=== PATIENT | female | born 2000 ===

== ENCOUNTER 2021-02-13 21:19 | Emergency (ER) | payer BC ==
[2021-02-13] MEDS ORDERED: Sodium Chloride 0.9% 10 ML Syringe FLUSH PRN (22:05)
[2021-02-13] MEDS ORDERED: Sodium Chloride 0.9% 2.5 ML Syringe FLUSH PRN (22:05)
--- NOTE | 2021-02-13 22:27 | EDM.PDOC ---
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 . Menstrual period December 26. The patient reports she was at work when she went to the bathroom and when she wiped she noticed some light vaginal bleeding. She has had some mild lower abdominal cramping today as well. No fevers or chills. No dysuria. Did have some nausea and vomiting this morning but none now. she sees 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 Review of systems: As per history of present illness and below otherwise all systems reviewed and negative. Past medical history: As per history of present illness and as reviewed below otherwise noncontributory. Surgical history: As per history of present illness and as reviewed below otherwise noncontributory. Social history: No reported history of drug or alcohol abuse. She uses a vape cigarette but she has cut back and is continuously cutting back now. Family history: As per history of present illness and as reviewed below otherwise noncontributory. Physical exam: GEN: no acute distress, well appearing HEENT: Atraumatic, normocephalic, mucous membranes moist, Neck: supple, nontender, trachea midline. Lungs: No respiratory distress. Heart: RRR Abdomen: Soft, nondistended, nontender. Back: nontender, full range of motion Extremities: Atraumatic. Neurovascularly intact. Neuro: Awake, alert, oriented. Neuro Exam nonfocal. Skin: warm, dry, no lesions Diagnostics: Labs, UA, ABO Rh, ultrasound. Rh+. UA with no overt infection, rare bacteria. Transvaginal ultrasound shows TECHNIQUE: Ultrasound OB pelvis transvaginal. Real time arellano scale imaging of the pelvis was performed. Color Doppler and spectral flow was performed of the ovaries. COMPARISON: None FINDINGS: Sonographic imaging demonstrates a single living intrauterine gestation with a heartbeat measuring 109 beats per minute. The embryo`s crown rump length measures 0.4 cm, which corresponds to a gestational age of 6 weeks and 5 day with a sonographic due date of 10/04/2021. Yolk sac is visualized. The right ovary measures 2.9 x 2.1 x 3.9 cm and the left ovary measures 2.8 x 2.1 x 2.7 cm. No adnexal mass is present. Normal color Doppler and spectral flow. No free fluid is present. IMPRESSION: Single live intrauterine gestation with an estimated gestational age of 6 weeks and 5 days and estimated due date of 10/04/2021. Therapeutics: None indicated MDM: Impression: Bleeding in early , threatened miscarriage Plan: [] Definitive disposition and diagnosis as appropriate pending reevaluation and review of above. - Related Data Allergies Allergy/AdvReac Type Severity Reaction Status Date / Time No Known Allergies Allergy Verified 06/21/15 11:48 Home Meds: Home Meds . [No Known Home Meds] 06/21/15 [History] Past Medical History - Past Health History Medical/Surgical History: Denies Medical/Surgical History Social & Family History - Family History Family Medical History: No Pertinent Family History - Tobacco Use Tobacco Use Status *Q: Current Every Day Tobacco User Years of Tobacco use: 2 Packs/Tins Daily: 0 - Caffeine Use Caffeine Use: Reports: None - Recreational Drug Use Recreational Drug Use: Yes Recreational Drug Type: Reports: Marijuana/Hashish ED ROS GENERAL - Review of Systems Review Of Systems: See Below (See dictation) ED EXAM, GENERAL - Physical Exam Exam: See Below (See dictation) Course - Vital Signs Last Recorded V/S: Last Vital Signs Temp 99.0 F 02/13/21 21:39 Pulse 88 02/13/21 21:39 Resp 18 02/13/21 21:39 BP 134/70 02/13/21 21:39 Pulse Ox 100 02/13/21 21:39 - Orders/Labs/Meds Orders: Active Orders 24 hr Category Date Time Status Sodium Chloride 0.9% [Saline Flush] Med 02/13/21 22:05 Active 10 ml FLUSH ASDIRECTED PRN Sodium Chloride 0.9% [Saline Flush] Med 02/13/21 22:05 Active 2.5 ml FLUSH ASDIRECTED PRN Saline Lock Insert [OM.PC] Stat Oth 02/13/21 22:05 Ordered Medication Orders Sodium Chloride (Sodium Chloride 0.9% 10 Ml Syringe) 10 ml FLUSH ASDIRECTED PRN PRN Reason: Keep Vein Open Sodium Chloride (Sodium Chloride 0.9% 2.5 Ml Syringe) 2.5 ml FLUSH ASDIRECTED PRN PRN Reason: Keep Vein Open Labs: Laboratory Tests 02/13/21 02/13/21 02/13/21 Range/Units 21:55 21:55 22:25 WBC 5.83 (4.0-11.0) K/uL RBC 3.85 L (4.30-5.90) M/uL Hgb 12.3 (12.0-16.0) g/dL Hct 34.8 L (36.0-46.0) % MCV 90.4 (80.0-98.0) fL MCH 31.9 (27.0-32.0) pg MCHC 35.3 (31.0-37.0) g/dL RDW Std Deviation 40.4 (28.0-62.0) fl RDW Coeff of Saira 12 (11.0-15.0) % Plt Count 197 (150-400) K/uL MPV 9.40 (7.40-12.00) fL Neut % (Auto) 67.8 (48.0-80.0) % Lymph % (Auto) 18.0 (16.0-40.0) % [place] % (Auto) 12.2 (0.0-15.0) % Eos % (Auto) 1.5 (0.0-7.0) % Baso % (Auto) 0.5 (0.0-1.5) % Neut # (Auto) 4.0 (1.4-5.7) K/uL Lymph # (Auto) 1.1 (0.6-2.4) K/uL [place] # (Auto) 0.7 (0.0-0.8) K/uL Eos # (Auto) 0.1 (0.0-0.7) K/uL Baso # (Auto) 0.0 (0.0-0.1) K/uL Nucleated RBC % 0.0 /100WBC Nucleated RBCs # 0 K/uL Sodium (136-145) mmol/L Potassium (3.5-5.1) mmol/L Chloride (98-107) mmol/L Carbon Dioxide (21.0-32.0) mmol/L BUN (7.0-18.0) mg/dL Creatinine (0.6-1.0) mg/dL Est Cr Clr Drug Dosing mL/min Estimated GFR (MDRD) ml/min Glucose (74-106) mg/dL Calcium (8.5-10.1) mg/dL Total Bilirubin (0.2-1.0) mg/dL AST (15-37) IU/L ALT (14-63) IU/L Alkaline Phosphatase (46-116) U/L Total Protein (6.4-8.2) g/dL Albumin (3.4-5.0) g/dL Globulin (2.6-4.0) g/dL Albumin/Globulin Ratio (0.9-1.6) HCG, Quant mIU/mL Urine Color YELLOW Urine Appearance CLEAR Urine pH 6.0 (5.0-8.0) Ur Specific [place] >= 1.030 (1.001-1.035) Urine Protein NEGATIVE (NEGATIVE) mg/dL Urine Glucose (UA) NEGATIVE (NEGATIVE) mg/dL Urine Ketones 40 H (NEGATIVE) mg/dL Urine Occult Blood SMALL H (NEGATIVE) Urine Nitrite NEGATIVE (NEGATIVE) Urine Bilirubin NEGATIVE (NEGATIVE) Urine Urobilinogen 0.2 (<2.0) EU/dL Ur Leukocyte Esterase NEGATIVE (NEGATIVE) Urine RBC 0-2 (0-2/HPF) Urine WBC 0-1 (0-5/HPF) Ur Epithelial Cells MODERATE (NONE-FEW) Urine Bacteria RARE (NEGATIVE) Urine HCG, Qual POSITIVE (NEGATIVE) Blood Type 02/13/21 02/13/21 Range/Units 22:25 22:25 WBC (4.0-11.0) K/uL RBC (4.30-5.90) M/uL Hgb (12.0-16.0) g/dL Hct (36.0-46.0) % MCV (80.0-98.0) fL MCH (27.0-32.0) pg MCHC (31.0-37.0) g/dL RDW Std Deviation (28.0-62.0) fl RDW Coeff of Saira (11.0-15.0) % Plt Count (150-400) K/uL MPV (7.40-12.00) fL Neut % (Auto) (48.0-80.0) % Lymph % (Auto) (16.0-40.0) % [place] % (Auto) (0.0-15.0) % Eos % (Auto) (0.0-7.0) % Baso % (Auto) (0.0-1.5) % Neut # (Auto) (1.4-5.7) K/uL Lymph # (Auto) (0.6-2.4) K/uL [place] # (Auto) (0.0-0.8) K/uL Eos # (Auto) (0.0-0.7) K/uL Baso # (Auto) (0.0-0.1) K/uL Nucleated RBC % /100WBC Nucleated RBCs # K/uL Sodium 136 (136-145) mmol/L Potassium 4.2 (3.5-5.1) mmol/L Chloride 101 (98-107) mmol/L Carbon Dioxide 26.4 (21.0-32.0) mmol/L BUN 6 L (7.0-18.0) mg/dL Creatinine 0.6 (0.6-1.0) mg/dL Est Cr Clr Drug Dosing 124.19 mL/min Estimated GFR (MDRD) > 60.0 ml/min Glucose 82 (74-106) mg/dL Calcium 8.7 (8.5-10.1) mg/dL Total Bilirubin 0.4 (0.2-1.0) mg/dL AST 9 L (15-37) IU/L ALT 20 (14-63) IU/L Alkaline Phosphatase 42 L (46-116) U/L Total Protein 7.4 (6.4-8.2) g/dL Albumin 4.2 (3.4-5.0) g/dL Globulin 3.2 (2.6-4.0) g/dL Albumin/Globulin Ratio 1.3 (0.9-1.6) HCG, Quant 74894.0 mIU/mL Urine Color Urine Appearance Urine pH (5.0-8.0) Ur Specific [place] (1.001-1.035) Urine Protein (NEGATIVE) mg/dL Urine Glucose (UA) (NEGATIVE) mg/dL Urine Ketones (NEGATIVE) mg/dL Urine Occult Blood (NEGATIVE) Urine Nitrite (NEGATIVE) Urine Bilirubin (NEGATIVE) Urine Urobilinogen (<2.0) EU/dL Ur Leukocyte Esterase (NEGATIVE) Urine RBC (0-2/HPF) Urine WBC (0-5/HPF) Ur Epithelial Cells (NONE-FEW) Urine Bacteria (NEGATIVE) Urine HCG, Qual (NEGATIVE) Blood Type O POSITIVE Meds: Medications Generic Name Dose Route Start Last Admin Trade Name Brigitte PRN Reason Stop Dose Admin Sodium Chloride 10 ml 02/13/21 22:05 Sodium Chloride 0.9% 10 Ml Syringe FLUSH ASDIRECTED PRN Keep Vein Open Sodium Chloride 2.5 ml 02/13/21 22:05 Sodium Chloride 0.9% 2.5 Ml Syringe FLUSH ASDIRECTED PRN Keep Vein Open - Re-Assessments/Exams Free Text/Narrative Re-Assessment/Exam: 02/14/21 00:32 Results and plan of care discussed with the patient. Stable for discharge. Departure - Departure Time of Disposition: 00:32 Disposition: Home, Self-Care 01 Clinical Impression: Bleeding in early , Threatened miscarriage in early - Discharge Information Instructions: Threatened Miscarriage, [id number], Vaginal Bleeding During , First Trimester, [id number] Referrals: PCP,None [Primary Care Provider] - Forms: ED Department Discharge Additional Instructions: Please call your COP EXAMINER office on Tuesday to schedule a follow-up appointment. Return to the ER if bleeding becomes more severe or you develop any high fevers or severe pain. Drink plenty of fluids and get plenty of rest. You may take Tylenol as needed for any pain or cramping. Pelvic rest, meaning no tampons or anything else inserted in your vagina. No sexual intercourse. The following information is given to patients seen in the emergency department who are being discharged to home. This information is to outline your options for follow-up care. We provide all patients seen in our emergency department with a follow-up referral. The need for follow-up, as well as the timing and circumstances, are variable depending upon the specifics of your emergency department visit. If you don't have a primary care physician on staff, we will provide you with a referral. We always advise you to contact your personal physician following an emergency department visit to inform them of the circumstance of the visit and for follow-up with them and/or the need for any referrals to a consulting specialist. The emergency department will also refer you to a specialist when appropriate. This referral assures that you have the opportunity for follow-up care with a specialist. All of these measure are taken in an effort to provide you with optimal care, which includes your follow-up. Under all circumstances we always encourage you to contact your private physician who remains a resource for coordinating your care. When calling for follow-up care, please make the office aware that this follow-up is from your recent emergency room visit. If for any reason you are refused follow-up, please contact the [facility] Emergency Department at and asked to speak to the emergency department charge nurse. [facility] [address] [place] [id number] [facility] [address] [place] [id number] Sepsis Event Note (ED) - Evaluation Sepsis Screening Result: No Definite Risk - Focused Exam Vital Signs: Vital Signs Temp Pulse Resp BP Pulse Ox 02/13/21 21:39 99.0 F 88 18 134/70 100 - My Orders Last 24 Hours: My Active Orders 02/13/21 22:05 Sodium Chloride 0.9% [Saline Flush] 10 ml FLUSH ASDIRECTED PRN Sodium Chloride 0.9% [Saline Flush] 2.5 ml FLUSH ASDIRECTED PRN Saline Lock Insert [OM.PC] Stat - Assessment/Plan Last 24 Hours: My Active Orders 02/13/21 22:05 Sodium Chloride 0.9% [Saline Flush] 10 ml FLUSH ASDIRECTED PRN Sodium Chloride 0.9% [Saline Flush] 2.5 ml FLUSH ASDIRECTED PRN Saline Lock Insert [OM.PC] Stat
[2021-02-13 23:17] LABS: BLOOD UREA NITROGEN,BUN 6 mg/dL (7.0-18.0); CARBON DIOXIDE,CO2 26.4 mmol/L (21.0-32.0); CHLORIDE,CL 101 mmol/L (98-107); GLUCOSE RANDOM 82 mg/dL (74-106); POTASSIUM,K 4.2 mmol/L (3.5-5.1); SODIUM,NA 136 mmol/L (136-145)
--- NOTE | 2021-02-13 23:56 | US ---
INDICATION: , bleeding TECHNIQUE: Ultrasound OB pelvis transvaginal. Real time arellano scale imaging of the pelvis was performed. Color Doppler and spectral flow was performed of the ovaries. COMPARISON: None FINDINGS: Sonographic imaging demonstrates a single living intrauterine gestation with a heartbeat measuring 109 beats per minute. The embryo`s crown rump length measures 0.4 cm, which corresponds to a gestational age of 6 weeks and 5 day with a sonographic due date of 10/04/2021. Yolk sac is visualized. The right ovary measures 2.9 x 2.1 x 3.9 cm and the left ovary measures 2.8 x 2.1 x 2.7 cm. No adnexal mass is present. Normal color Doppler and spectral flow. No free fluid is present. IMPRESSION: Single live intrauterine gestation with an estimated gestational age of 6 weeks and 5 days and estimated due date of 10/04/2021. Dictated by Nancy Porter MD @ 02/13/2021 11:54:[address] Nancy Porter @ Feb 13 2021 11:54PM
[2021-02-14 00:57] VITALS: BP 118/78; PULSE 82
== END 2021-02-14 00:49 | disposition home or self-care (01) ==
LOC: MW.ED 21:19
DX: O20.0 Threatened abortion (principal); Z72.0 Tobacco use; Z3A.01 Less than 8 weeks gestation of pregnancy
CPT/HCPCS: 36415; 76801; 76801-26; 80053; 81001; 81025; 84702; 85025; 86900; 86901; 99284-25

== ENCOUNTER 2021-10-12 12:13 | Inpatient (IN) | payer BC, OTHER ==
[2021-10-12] MEDS: Lactated Ringers 1,000 ML IV SCH ×2 (12:45→14:10)
[2021-10-12] MEDS ORDERED: Sodium Chloride 0.9% 2.5 ML Syringe FLUSH PRN (12:58)
[2021-10-12] MEDS ORDERED: Sodium Chloride 0.9% 20 ML SDV IV PRN (12:58)
[2021-10-12] MEDS ORDERED: Water For Irrigation,Sterile 1,000 ML Container IRR PRN (12:58)
[2021-10-12] MEDS ORDERED: Carboprost Tromethamine 250 MCG/1 ML Amp IM PRN (12:58)
[2021-10-12] MEDS ORDERED: Lidocaine 1% 50 ML MDV INJECT PRN (12:58)
[2021-10-12] MEDS ORDERED: Butorphanol 1 MG/ML SDV IVPUSH PRN (12:58)
[2021-10-12] MEDS ORDERED: Misoprostol 200 MCG Tab PO PRN (12:58)
[2021-10-12] MEDS ORDERED: Methylergonovine 0.2 MG/1 ML Amp IM PRN (12:58)
[2021-10-12] MEDS ORDERED: Sodium Chloride 0.9% 10 ML Syringe FLUSH PRN (12:58)
[2021-10-12] MEDS ORDERED: Tranexamic Acid 1,000 MG in Sodium Chloride 0.9% 100 ML IV PRN (12:58)
[2021-10-12] MEDS ORDERED: Oxytocin/0.9 % Sodium Chloride 30 UNIT/500 ML BAG IV SCH (13:00)
[2021-10-12] MEDS ORDERED: Ropivacaine 100 ML ONE (13:36)
[2021-10-12] MEDS ORDERED: fentaNYL 100 MCG/2 ML SDV ONE (13:36)
[2021-10-12] MEDS ORDERED: Bisacodyl 10 MG Supp RECTAL PRN (18:24)
[2021-10-12] MEDS ORDERED: Benzocaine/Menthol 20%-0.5% Spray 78 GM Cannister TOP PRN (18:24)
[2021-10-12] MEDS ORDERED: Ibuprofen 400 MG Tab PO PRN (18:24)
[2021-10-12] MEDS ORDERED: Lanolin 100% Cream 7 GM Tube TOP PRN (18:24)
[2021-10-12] MEDS ORDERED: Acetaminophen 500 MG Tab PO PRN (18:24)
[2021-10-12] MEDS: Docusate Sodium 100 MG Cap PO PRN (23:44)
[2021-10-12] MEDS: Ibuprofen 800 MG Tab PO PRN (23:44)
[2021-10-12] MEDS: Witch Hazel Medicated Pads 40/Jar TOP PRN (23:53)
[2021-10-13] MEDS: Acetaminophen 500 MG Tab PO PRN ×2 (04:19→17:45)
[2021-10-13] MEDS: Ibuprofen 800 MG Tab PO PRN (07:12)
[2021-10-13] MEDS: Docusate Sodium 100 MG Cap PO PRN (19:31)
[2021-10-14] MEDS: Ibuprofen 800 MG Tab PO PRN (00:37)
[2021-10-14 08:11] VITALS: BP 116/66; PULSE 72
[2021-10-14] MEDS: Witch Hazel Medicated Pads 40/Jar TOP PRN (08:16)
[2021-10-14] MEDS: Docusate Sodium 100 MG Cap PO PRN (08:16)
[2021-10-14] MEDS: Acetaminophen 500 MG Tab PO PRN (09:35)
== END 2021-10-14 14:52 | disposition home or self-care (01) | DRG 560 ==
LOC: MW.OBCHECK 12:13 → MW.OB 12:14 → OBSVTOIN 18:00 → MW.OBCHECK 18:00 → MW.OB 18:00
PROVIDERS: ADMIT Obstetrics & Gynecology Obstetrics; ATTEND Obstetrics & Gynecology Obstetrics
PROC: 10E0XZZ Delivery of Products of Conception, External Approach (ICD-10-PCS; principal; 2021-10-12)
PROC: 10907ZC Drainage of Amniotic Fluid, Therapeutic from Products of Conception, Via Natural or Artificial Opening (ICD-10-PCS; 2021-10-12)
PROC: 3E0R3BZ Introduction of Anesthetic Agent into Spinal Canal, Percutaneous Approach (ICD-10-PCS; 2021-10-12)
PROC: 00HU33Z Insertion of Infusion Device into Spinal Canal, Percutaneous Approach (ICD-10-PCS; 2021-10-12)
DX: O48.0 Post-term pregnancy (principal); Z37.0 Single live birth; O69.81X0 Labor and delivery complicated by cord around neck, without compression, not applicable or unspecified; O77.0 Labor and delivery complicated by meconium in amniotic fluid; Z20.822 Contact with and (suspected) exposure to COVID-19; Z3A.41 41 weeks gestation of pregnancy
CPT/HCPCS: 01967; 36415; 51702; 59025; 59409; 85014; 85018; 85027; 86592; 86850; 86900; 86901; A9270-GY; J2590; J2795; J3010; J7120; U0002